=== PATIENT | female | born 1965 | race Caucasian/White ===

== ENCOUNTER 2018-07-30 18:22 | Emergency (ER) | payer BC ==
[2018-07-30] MEDS ORDERED: Sodium Chloride 0.9% 1,000 ML IV ONE (18:57)
[2018-07-30] MEDS ORDERED: INSULIN HUMAN REGULAR 100 UNITS/ML UNIT IVP ONE (18:57)
--- NOTE | 2018-07-30 18:57 | ED Physician Chart ---
ED Chief Complaint/HPI - Patient Information Date Seen:: 07/30/18 Time Seen:: 18:53 Chief Complaint:: high sugar confusion History of Present Illness:: 53 yr old female with hx IDDM elevated bs and confusion has been taking her meds ok no nvdc no fever headache or sore throat Allergies:: Allergies Allergy/AdvReac Type Severity Reaction Status Date / Time diphenhydramine Allergy Verified 07/30/18 18:43 [From Benadryl] Vitals:: Vital Signs - 8 hr 07/30/18 18:43 Temp 97.2 F HR 89 RR 18 BP 122/69 O2 Sat % 99 ED Review of Systems - Review of Systems General/Constitutional: No fever, No chills, No weight loss, No weakness, No diaphoresis, No edema, No loss of appetite Skin: No skin lesions, No rash, No bruising Head: No headache, No light-headedness Eyes: No loss of vision, No pain, No diplopia ENT: No earache, No nasal drainage, No sore throat, No tinnitus Neck: No neck pain, No swelling, No thyromegaly, No stiffness, No mass noted Cardio Vascular: No chest pain, No palpitations, No PND, No orthopnea, No edema Pulmonary: No SOB, No cough, No sputum, No wheezing GI: No nausea, No vomiting, No diarrhea, No pain, No melena, No hematochezia, No constipation, No hematemesis G/U: No dysuria, No frequency, No hematuria Musculoskeletal: No bone or joint pain, No back pain, No muscle pain Endocrine: No polyuria, No polydipsia Psychiatric: No prior psych history, No depression, No anxiety, No suicidal ideation Hematopoietic: No bruising, No lymphadenopathy Allergic/Immuno: No urticaria, No angioedema Neurological: No syncope, No focal symptoms, No weakness, No paresthesia, No headache, No seizure, No dizziness, No confusion, No vertigo ED Past Medical History - Past Medical History Past Medical History: HTN, DM Family Medical History - Family Member Father Ethnicity: Living Status: Hx Family Cancer: Yes ED Physical Exam - Physical Examination General/Constitutional: Awake, Well-developed, well-nourished, Alert, No distress, GCS 15, Non-toxic appearing, Ambulatory Head: Atraumatic Eyes: Lids, conjuctiva normal, PERRL, EOMI Skin: Nl inspection, No rash, No skin lesions, No ecchymosis, Well hydrated, No lymphadenopathy ENMT: External ears, nose nl, Nasal exam nl, Lips, teeth, gums nl Neck: Nontender, Full ROM w/o pain, No JVD, No nuchal rigidity, No bruit, No mass, No stridor Respiratory: Nl effort/Exclusion, Clear to Auscultation, No Wheeze/Rhonchi/Rales Cardio Vascular: RRR, No murmur, gallop, rubs, NL S1 S2 GI: No tenderness/rebounding/guarding, No organomegaly, No hernia, Normal BS's, Nondistended, No mass/bruits, No McBurney tenderness : No CVA tenderness Extremities: No tenderness or effusion, Full ROM, normal strength in all extremities, No edema, Normal digits & nails Neuro/Psych: Alert/oriented, DTR's symmetric, Normal sensory exam, Normal motor strength, Judgement/insight normal, Mood normal, Normal gait, No focal deficits Misc: Normal back, No paraspinal tenderness ED Assessment - Assessment General Assessment: hyperglycemia ED Septic Shock - . Is Septic Shock (SBP<90, OR Lactate>4 mmol\L) present?: No - <6hrs of presentation: Vital Signs: Vital Signs - 8 hr 07/30/18 18:43 Temp 97.2 F HR 89 RR 18 BP 122/69 O2 Sat % 99 ED Reassessment (Disposition) - Reassessment Reassessment:: hyperglycemia - Diagnosis Diagnosis:: same - Patient Disposition Discharge/Transfer:: Home Condition at Disposition:: Stable
[2018-07-30] MEDS ORDERED: INSULIN HUMAN REGULAR 100 UNITS/ML UNIT ONE (19:15)
[2018-07-30 19:42] LABS: % BASOPHILS 0.7 % (0.0-2.0); % EOSINOPHILS 1.8 % (0.0-5.0); % MONOCYTES 6.8 % (2.0-10.0); % NEUTROPHILS 59.7 % (40.0-80.0); BASOPHILE ABSOLUTE 0.1 Th/cumm (0-0.2); EOSINOPHILE ABSOLUTE 0.2 Th/cmm (0.1-0.4); HEMATOCRIT 34.7 % (41.0-60); HEMOGLOBIN 11.8 gm/dL (12-16); MEAN CELL VOLUME 87.9 fl (81-100); MEAN CORPUSCULAR HEMOGLOBIN 29.8 pg (27.0-31.0); MEAN CORPUSCULAR HGB CONC 33.9 pg (28.0-36.0); MEAN PLATELET VOLUME 7.2 fl; MONOCYTE ABSOLUTE 0.7 Th/cmm (0.3-1.0); NEUTROPHILE ABSOLUTE 5.6 Th/cmm (1.8-8.0); PLATELET COUNT 465 Th/cmm (150-400); RED BLOOD COUNT 3.95 Mil/cmm (3.80-5.10); WHITE BLOOD COUNT 9.6 Th/cmm (4.8-10.8)
[2018-07-30 19:59] LABS: ALB/GLOB RATIO 1.1 (1.0-1.8); ALBUMIN 4.1 gm/dL (3.7-5.3); ANION GAP 16.6 (7.0-16.0); BILIRUBIN,TOTAL 0.4 mg/dL (0.3-1.0); CALCIUM SERUM 9.7 mg/dL (8.6-10.3); CARBON DIOXIDE 21.3 mEq/L (21.0-31.0); CREATININE - SERUM 1.6 mg/dL (0.6-1.2); GFR NON AFRICAN-AMERICAN 35.6 ml/min; POTASSIUM SERUM 4.9 mEq/L (3.5-5.1); TOTAL PROTEIN,SERUM 7.8 gm/dL (6.0-8.3)
[2018-07-30 21:07] LABS: URINE SOURCE CLEAN C
[2018-07-30 21:09] LABS: URINE BILIRUBIN NEGATIVE (NEGATIVE); URINE BLOOD NEGATIVE (NEGATIVE); URINE CLARITY CLEAR (CLEAR); URINE COLOR YELLOW; URINE GLUCOSE (UA) >=1000 mg/dL (NEGATIVE); URINE KETONE NEGATIVE (NEGATIVE); URINE LEUKOCYTE ESTERASE NEGATIVE (NEGATIVE); URINE MICROSCOPIC INDICATED? YES; URINE NITRATE NEGATIVE (NEGATIVE); URINE PH 5.5 (4.6 - 8.0); URINE PROTEIN TRACE mg/dL (NEGATIVE); URINE UROBILINOGEN 0.2 E.U./dL (0.2 - 1.0)
[2018-07-30 21:19] LABS: URINE BACTERIA 1+ /hpf (NONE SEEN); URINE EPITHELIAL CELLS MODERATE /lpf (FEW); URINE RBC 0-2 /hpf (0-5)
[2018-07-30 21:20] LABS: URINE COARSE GRANULAR CAST 0-2 /lpf (NONE SEEN)
== END 2018-07-30 21:52 | disposition home or self-care (01) ==
LOC: ER 18:22
DX: E11.65 Type 2 diabetes mellitus with hyperglycemia (principal); I10 Essential (primary) hypertension; Z88.8 Allergy status to other drugs, medicaments and biological substances
CPT/HCPCS: 99283; 96374; 36415; 36416 ×3; 85025; 81001; 83036; 82010; 80053; J1815; 82948-90; J7030; Z7502